=== PATIENT | male | born 1950 | race Caucasian/White ===

== ENCOUNTER 2025-05-05 12:56 | Outpatient (REF) | payer SELFPAY ==
--- OUTSIDE RECORDS SUMMARY | 2025-05-05 14:14 | XMS_ITS | Clinical Summary ---
Author Organization [facility] Address [address] [place] [address] Phone Care Team Providers Care Heel Caser Name Role Phone Ashli Eddy MD Primary Care Provider + [phone] Allergies No known active allergies Medications nebivoloL (BYSTOLIC) 5 mg tablet Take 1 tablet (5 mg total) by mouth 1 (one) time each day. 4 Active tadalafiL (CIALIS) 5 mg tablet Take 1 tablet (5 mg total) by mouth 1 (one) time each day. Active olmesartan (BENICAR) 40 mg tablet Take 1 tablet (40 mg total) by mouth 1 (one) time each day. Active nitroglycerin (NITROSTAT) 0.[address] 1 tablet (0.4 mg total) under the tongue every 5 (five) minutes if needed. Active hydroCHLOROthi azide (HYDRODIURIL) 25 mg tablet Take 1 tablet (25 mg total) by mouth 1 (one) time each day. 4 Active brinzolamide (AZOPT) 1 % ophthalmic suspension Administer 1 drop into both eyes 2 (two) times a day. 9 Active cyanocobalamin (VITAMIN B-12) 50 mcg tablet Take 1 tablet (50 mcg total) by mouth 1 (one) time each day. Active atorvastatin (LIPITOR) 10 mg tablet Take 1 tablet (10 mg total) by mouth 1 (one) time each day. 4 Active ciprofloxacin (CIPRO) 500 mg tablet Take 1 tablet (500 mg total) by mouth 2 (two) times a day. Starting day before sx Active warfarin (COUMADIN) 5 mg tablet Take 1 tablet (5 mg total) by mouth 1 (one) time each day with dinner. Last day 04/19/25 04/25/20 Discontinu ed(Stop Taking at Discharge) Encounters Date Type Department Care Team Description 04/25/2025 3:21 PM EDT Anesthesia Event [facility] Main OR [address] [place] [phone] Kirby Chavarria MD 04/25/2025 2:20 PM EDT - 04/25/2025 4:20 PM EDT Surgery [facility] Main OR [address] [place] [phone] Francesca Dillard MD TRANSRECTAL ULTRASOUND GUIDED NEEDLE PROSTATED BIOPSY [00407 (CPT )] 04/25/2025 12:15 PM EDT - 04/25/2025 11:59 PM EDT Hospital Encounter [facility] Ultrasound [address] [place] [phone] Elevated PSA Discharge Disposition: Home or Self Care 04/25/2025 12:09 PM EDT - 04/25/2025 7:18 PM EDT Hospital Encounter [facility] Main OR [address] [place] [phone] Francesca Dillard MD Elevated prostate specific antigen (PSA); Asymptomatic microscopic hematuria; Other abnormal findings on cytological and histological examination of urine Discharge Disposition: Home or Self Care 04/25/2025 7:45 AM EDT - 04/25/2025 11:59 PM EDT Hospital Encounter [facility] Xray [address] [place] [phone] Pain Discharge Disposition: Home or Self Care from Last 3 Months Surgical History Surgery Date Site/Laterality Comments OTHER SURGICAL HISTORY CORONARY ARTERY BYPASS GRAFT over 30 yrs ago CHOLECYSTECTOMY HERNIA REPAIR Medical History Medical History Date Comments Hypertension Hyperlipidemia HL (hearing loss) b mcgarry Chronic kidney disease Bladder disorder abnormal cels f inding in bladder and prostate Irregular heart beat Arrhythmia Pacemaker Social History Tobacco Use Types Packs/Day Years Used Date Smoking Tobacco: Never Smokeless Tobacco: Never Tobacco Cessation:Counseling Given: Not Answered Alcohol Use Standard Drinks/Week Comments Yes 6 (1 standard drink = 0.6 oz pur e alcohol) Interpersonal Safety Answer Date Record ed Physical Abuse 04/25/2025 Verbal Abuse 04/25/2025 Sex and Gender Information Value Date Recorded Sex Assigned at Not on file Legal Sex Male 4:20 AM EST Gender Identity Not on file Sexual Orientation Not on file Obstetrics History Last Filed Vital Signs Vital Sign Reading Time Taken Comments Blood Pressure 143/73 04/25/2025 5:48 PM EDT Pulse 77 04/25/2025 5:48 PM EDT Temperature 36.8 C (98.3 F) 04/25/2025 5:48 PM EDT Respiratory Rate 20 04/25/2025 5:48 PM EDT Oxygen Saturation 99% 04/25/2025 5:48 PM EDT Inhaled Oxygen Concentration - - Weight 99.8 kg (220 lb) 04/19/2025 10:00 AM EDT Height 185.4 cm (6' 1 ) 04/19/2025 10:00 AM EDT Body Mass Index 29.03 04/19/2025 10:00 AM EDT Plan of Treatment Health Maintenance Due Date Last Done Comments Depression Screening 09/01/2024 Cholesterol Screening (Lipid Panel) 03/25/2025 Colorectal Cancer Screening: Colonoscopy 03/25/2025 Hepatitis C Screening 03/25/2025 Medicare Annual Wellness Visit 03/25/2025 Social Influencers of Health Screening 03/25/2025 Hypertension/CHF/CAD Annual BMP Blood Test 03/29/2025 01/20/2024 COVID-19 Vaccine ( season) 2025 06/18/2023, 12/27/2021, 06/28/2021, Additional history exists Influenza Vaccine (#1) 2025 , 06/14/2022, 05/24/2021, Additional history exists Falls Risk Assessment 04/25/2026 04/25/2025 DTaP,Tdap,and Td Vaccines (3 - Td or Tdap) 07/16/2029 07/16/2019, 05/02/2008 Pneumococcal Vaccine: 50+ Years Completed 08/08/2016, 01/25/2015 Zoster Vaccines Completed 06/29/2019, 10/0 12/2017, 12/26/2010 RSV Immunization Adult Patients Completed 07/08/2023 HIB Vaccines Aged Out No longer eligi ble based on patient's age to complete this topic HPV Vaccines Aged Out No longer eligi ble based on patient's age to complete this topic Hepatitis A Vaccines Aged Out No long er eligible based on patient's age to complete this topic Hepatitis B Vaccines Aged Out No long er eligible based on patient's age to complete this topic IPV Vaccines Aged Out No longer eligi ble based on patient's age to complete this topic MMR Vaccines Aged Out No longer eligi ble based on patient's age to complete this topic Meningococcal ACWY Vaccine Aged Out N o longer eligible based on patient's age to complete this topic Meningococcal B Vaccine Aged Out No l onger eligible based on patient's age to complete this topic RSV Immunization Patients Under 20 months Aged Out No longer eligible based on patient's age to complete this topic Varicella Vaccines Aged Out No longer eligible based on patient's age to complete this topic Procedures Procedure Name Priority Date/Time Associated Diagnosis Comments OXYGEN THERAPY, ADULT Routine 04/25/2025 4:42 PM EDT OXYGEN THERAPY, ADULT Routine 04/25/2025 4:42 PM EDT US BX PROSTATE NDL/PUNCH Routine 04/25/2025 4:20 PM EDT Elevated PSA TISSUE EXAM Routine 04/25/2025 4:19 PM EDT Elevated prostate specific antigen (PSA) Asymptomatic microscopic hematuria Other abnormal findings on cytological and histological examination of urine XR UROGRAM RETROGRADE Routine 04/25/2025 4:15 PM EDT Pain TH AN LMA(NO CHARGE) Routine 04/25/2025 3:35 PM EDT MN CYSTOURETHROSCOPY WITH BIOPSY(S) 04/25/2025 3:22 PM EDT Elevated prostate specific antigen (PSA) Asymptomatic microscopic hematuria Other abnormal findings on cytological and histological examination of urine 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, 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 [employer] F[employer] Special Needs TIME CHGD TO 12:00 (MOVED CASE DOWN)PER CRISTA VIA FAX BKG; case msg sent to u/s w/new start time AC 03/28 Sent case msg for u/s tech request MN BIOPSY PROSTATE NEEDLE/PUNCH SINGLE/MULTIPLE ANY APPROACH 04/25/2025 3:22 PM EDT Elevated prostate specific antigen (PSA) Asymptomatic microscopic hematuria Other abnormal findings on cytological and histological examination of urine 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, 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 -------- FINAL REPORT -------- Dictated By: Wild Winkler Dictated Date: 04/26/2025 09:02 ET Assigned Physician: Wild Winkler Reviewed and Electronically Signed By: Wild Winkler Signed Date: 04/26/2025 09:03 ET Workstation ID: [id number] Transcribed By: Self Edit Transcribed Date: 04/26/2025 09:02 ET Narrative 04/26/2025 9:03 AM EDT EXAM: US PROSTATE HISTORY: Elevated PSA. TECHNIQUE: Transrectal prostate ultrasound. COMPARISON: None FINDINGS: Quality: No significant limitations Prostate size: 6.9 x 5.1 x 6.2 cm Estimated prostate volume: 115 mL ECHOTEXTURE: There are calcifications in the peripheral gland. FOCAL ABNORMALITIES: No suspicious focal abnormalities. Extraprostatic extension: No evidence of extraprostatic extension Gland contour: The gland indents the bladder. Region of neurovascular bundle: No large abnormality. Seminal vesicles: No suspicious abnormality. Lymph nodes: No suspicious or enlarged lymph nodes. Urinary bladder: Not well evaluated. OTHER: Ultrasound guidance was provided during transrectal prostate ultrasound performed by the urologist. No radiologist was present. Images demonstrate linear bright reflectors consistent with needle passage. Procedure Note Wild Winkler MD - 04/26/2025 EXAM: US PROSTATE HISTORY: Elevated PSA. TECHNIQUE: Transrectal prostate ultrasound. COMPARISON: None FINDINGS: Quality: No significant limitations Prostate size: 6.9 x 5.1 x 6.2 cm Estimated prostate volume: 115 mL ECHOTEXTURE: There are calcifications in the peripheral gland. FOCAL ABNORMALITIES: No suspicious focal abnormalities. Extraprostatic extension: No evidence of extraprostatic extension Gland contour: The gland indents the bladder. Region of neurovascular bundle: No large abnormality. Seminal vesicles: No suspicious abnormality. Lymph nodes: No suspicious or enlarged lymph nodes. Urinary bladder: Not well evaluated. OTHER: Ultrasound guidance was provided during transrectal prostateultrasound performed by the urologist. No radiologist was present. Images demonstrate linear bright reflectors consistent with needlepassage. IMPRESSION: Enlarged prostate with coarse calcifications Imaging assistance was provided during transrectal prostate ultrasoundperformed by the urologist. -------- FINAL REPORT -------- Dictated By: Wild Winkler Dictated Date: 04/26/2025 09:02 ET Assigned Physician: Wild Winkler Reviewed and Electronically Signed By: Wild Winkler Signed Date: 04/26/2025 09:03 ET Workstation ID: [id number] Transcribed By: Self Edit Transcribed Date: 04/26/2025 09:02 ET us Francesca Dillard MD [facility] US PROCEDURES Final Result * Tissue exam (04/25/2025 4:19 PM EDT) Only the most recent of2 resultswithin the time period is included. Final Diagnosis A. Urinary Bladder, floor: - Benign urothelial mucosa with lamina propria fibrosis. - Negative for dysplasia and carcinoma. B. Prostate, Right Base Lateral: - Benign prostatic tissue. C. Prostate, Right Base Medial: - Benign prostatic tissue. D. Prostate, Right Mid Lateral: - Benign prostatic tissue. E. Prostate, Right Mid Medial: - Benign prostatic tissue. F. Prostate, Right [place] Lateral: - Benign prostatic tissue. G. Prostate, Right [place] Medial: - Benign prostatic tissue. H. Prostate, Left Base Lateral: - Benign prostatic tissue. I. Prostate, Left Base Medial: - Benign prostatic tissue. J. Prostate, Left Mid Lateral: - Benign prostatic tissue. K. Prostate, Left Mid Medial: - Benign prostatic tissue. L. Prostate, Left [place] Lateral: - Benign prostatic tissue. M. Prostate, Left [place] Medial: - Benign prostatic tissue. 04/27/2025 1:02 PM EDT [facility] Gross Description A. Urinary Bladder, floor: Labeled bladder . Received in formalin, on Telfa, is a soft, white to red, 0.35 cm in greatest diameter tissue fragment which is wrapped in paper and submitted in toto in one cassette, one piece, multiple levels. B. Prostate, Right Base Lateral: Labeled prostate biopsy, right base lateral . Received in formalin, between sheets of Telfa, is a 1.2 x 0.1 cm soft, cade-white tissue core, which is submitted in toto, between sponges, in one cassette, one piece, x4. C. Prostate, Right Base Medial: Labeled prostate biopsy, right base medial . Received in formalin, between sheets of Telfa, is a 1.3 x 0.1 cm soft, acde-white tissue core, which is submitted in toto, between sponges, in one cassette, one piece, x4. D. Prostate, Right Mid Lateral: Labeled prostate biopsy, right mid lateral . Received in formalin, between sheets of Telfa, is a focally disrupted, 1.4 x 0.1 cm soft, cade-white tissue core, which is submitted in toto, between sponges, in one cassette, one piece, x4. E. Prostate, Right Mid Medial: Labeled prostate biopsy, right mid medial . Received in formalin, between sheets of Telfa, is a 1.1 x 0.1 cm soft, cade-white tissue core, which is submitted in toto, between sponges, in one cassette, one piece, x4. F. Prostate, Right [place] Lateral: Labeled prostate biopsy, right apex lateral . Received in formalin, between sheets of Telfa, is a 1.4 x 0.1 cm soft, cade-white tissue core, which is submitted in toto, between sponges, in one cassette, one piece, x4. G. Prostate, Right [place] Medial: Labeled prostate biopsy, right apex medial . Received in formalin, between sheets of Telfa, is a 1.0 x 0.1 cm soft, cade-white tissue core, which is submitted in toto, between sponges, in one cassette, one piece, x4. H. Prostate, Left Base Lateral: Labeled prostate biopsy, left base lateral . Received in formalin, between sheets of Telfa, is a 1.4 x 0.1 cm soft, cade-white tissue core, which is submitted in toto, between sponges, in one cassette, one piece, x4. I. Prostate, Left Base Medial: Labeled prostate biopsy, left base medial . Received in formalin, between sheets of Telfa, is a 1.3 x 0.1 cm soft, cade-white tissue core, which is submitted in toto, between sponges, in one cassette, one piece, x4. J. Prostate, Left Mid Lateral: Labeled prostate biopsy, left mid lateral . Received in formalin, between sheets of Telfa, is a 1.1 x 0.1 cm soft, cade-white tissue core, which is submitted in toto, between sponges, in one cassette, one piece, x4. K. Prostate, Left Mid Medial: Labeled prostate biopsy, left mid medial . Received in formalin, between sheets of Telfa, is a 1.45 x 0.1 cm soft, cade-white tissue core, which is submitted in toto, between sponges, in one cassette, one piece, x4. Left mid medial L. Prostate, Left [place] Lateral: Labeled prostate biopsy, left apex lateral . Received in formalin, between sheets of Telfa, is a 1.4 x 0.1 cm soft, cade-white tissue core, which is submitted in toto, between sponges, in one cassette, one piece, x4. M. Prostate, Left [place] Medial: Labeled prostate biopsy, left apex medial . Received in formalin, between sheets of Telfa, is a 0.6 x 0.1 cm soft, cade-white tissue core, which is submitted in toto, between sponges, in one cassette, one piece, x4. TS 04/27/2025 1:02 PM [facility] Disclaimer Unless otherwise specified, all tissue is 10% NB formalin fixed and paraffin embedded. 04/27/2025 1:02 PM EDT [facility] Tissue Urinary bladder structure / Unknown 04/25/2025 4:19 PM EDT 04/26/2025 5:03 AM EDT Tissue specimen (specimen) Prostate / Unknown 04/25/2025 2:21 PM EDT 04/26/2025 5:18 AM EDT Tissue specimen (specimen) Prostate / Unknown 04/25/2025 2:21 PM EDT 04/26/2025 5:18 AM EDT Tissue specimen (specimen) Prostate / Unknown 04/25/2025 2:21 PM EDT 04/26/2025 5:18 AM EDT Tissue specimen (specimen) Prostate / Unknown 04/25/2025 2:21 PM EDT 04/26/2025 5:18 AM EDT Tissue specimen (specimen) Prostate / Unknown 04/25/2025 2:21 PM EDT 04/26/2025 5:18 AM EDT Tissue specimen (specimen) Prostate / Unknown 04/25/2025 2:21 PM EDT 04/26/2025 5:18 AM EDT Tissue specimen (specimen) Prostate / Unknown 04/25/2025 2:21 PM EDT 04/26/2025 5:18 AM EDT Tissue specimen (specimen) Prostate / Unknown 04/25/2025 2:21 PM EDT 04/26/2025 5:18 AM EDT Tissue specimen (specimen) Prostate / Unknown 04/25/2025 2:21 PM EDT 04/26/2025 5:18 AM EDT Tissue specimen (specimen) Prostate / Unknown 04/25/2025 2:21 PM EDT 04/26/2025 5:18 AM EDT Tissue specimen (specimen) Prostate / Unknown 04/25/2025 2:21 PM EDT 04/26/2025 5:18 AM EDT Tissue specimen (specimen) Prostate / Unknown 04/25/2025 2:21 PM EDT 04/26/2025 5:18 AM EDT us Francesca Dillard MD LAB PATHOLOGY ORDERABLES Final Result [facility] [address] [place] [address], * XR Urogram Retrograde (04/25/2025 4:15 PM EDT) Anatomical Region Laterality Modality Body Radio Fluoroscop y 04/26/2025 7:18 AM EDT Impressions 04/26/2025 7:20 AM EDT Imaging assistance provided during a urologic procedure -------- FINAL REPORT -------- Dictated By: Wild Winkler Dictated Date: 04/26/2025 07:18 ET Assigned Physician: Wild Winkler Reviewed and Electronically Signed By: Wild Winkler Signed Date: 04/26/2025 07:20 ET Workstation ID: [id number] Transcribed By: Self Edit Transcribed Date: 04/26/2025 07:18 ET Narrative 04/26/2025 7:20 AM EDT EXAMINATION: Imaging assistance provided during a procedure CLINICAL INFORMATION: Pain COMPARISON: None. TECHNIQUE: UROLOGIC-Imaging assistance was provided during a urologic procedure FINDINGS: The images are not labeled left or right. Cystoscope present. The distal ureter is engaged and contrast opacifies the ureter and some of the intrarenal collecting system. There is an oval filling defect in the ureter. Whether this is a transient or persistent finding is difficult to determine. The contralateral collecting system is opacified. Total dose area product : 9.1408 Gycm2 Fluoroscopy time: 2 minutes 0.2 seconds Procedure Note Wild Winkler MD - 04/26/2025 EXAMINATION: Imaging assistance provided during a procedure CLINICAL INFORMATION: Pain COMPARISON: None. TECHNIQUE: UROLOGIC-Imaging assistance was provided during a urologic procedure FINDINGS: The images are not labeled left or right. Cystoscope present. The distal ureter is engaged and contrast opacifiesthe ureter and some of the intrarenal collecting system. There is an ovalfilling defect in the ureter. Whether this is a transient or persistentfinding is difficult to determine. The contralateral collecting system is opacified. Total dose area product : 9.1408 Gycm2 Fluoroscopy time: 2 minutes 0.2 seconds IMPRESSION: Imaging assistance provided during a urologic procedure -------- FINAL REPORT -------- Dictated By: Wild Winkler Dictated Date: 04/26/2025 07:18 ET Assigned Physician: Wild Winkler Reviewed and Electronically Signed By: Wild Winkler Signed Date: 04/26/2025 07:20 ET Workstation ID: [id number] Transcribed By: Self Edit Transcribed Date: 04/26/2025 07:18 ET us Francesca Dillard MD IMG FLUOROSCOPY PROCEDUR ES Final Result * TH AN LMA(NO CHARGE) (04/25/2025 3:35 PM EDT) Narrative Lauryn Olvera CRNA - 04/25/2025 3:35 PM EDT Lauryn Olvera CRNA 04/25/2025 3:35 PM General Information and Staff Patient location during procedure: OR Performed by: Lauryn Olvera CRNA Authorized by: Kirby Chavarria MD Intubation Airway not difficult Urgency: elective Final Airway Details Number of attempts at approach: 1 Ventilation between attempts: none Number of other approaches attempted: 0 LMA Size: 5 LMA Type: Classic LMA Seal Pressure: Final airway type: LMA Indications and Patient Condition Indications for airway management: anesthesia and airway protection Spontaneous ventilation: present Sedation level: Yes Preoxygenated: yes Soft Tissue Damage: No Dentition Unchanged: Yes Patient position: neutral MILS not maintained throughout Mask difficulty assessment: 0 - not attempted Start Time: 04/25/2025 3:27 PMStop Time: 04/25/2025 3:27 PM us Kirby Chavarria MD ANESTHESIA ORDERABLES Final Re sult * Protime-INR (04/25/2025 12:35 PM EDT) Protime 12.8 10.6 - 13.9 sec LAB COAGULATION METHOD 04/25/2025 12:53 PM EDT [facility] INR 1.0 LAB COAGULATION METHOD 04/25/2025 12:53 PM EDT [facility] Blood Venous blood specimen / Unknown Venipuncture / Unknown 04/25/2025 12:35 PM EDT 04/25/2025 12:44 PM EDT us Francesca Dillard MD LAB BLOOD ORDERABLES Fin al Result [facility] [address] [place] [address], [place] [phone] from Last 3 Months Insurance MEDICARE [facility] Care Teams Heel Caser Relationship Specialty Start Date End Date Ashli Eddy MD [address] [place] [address] PCP - General Internal Medicine 04/25/25
--- OUTSIDE RECORDS SUMMARY | 2025-05-05 14:14 | XMS_ITS | Clinical Summary ---
Author Organization [facility] Address [address] [place] [address] Care Team Providers Care Transfer Man Name Role Phone Galileo Willis MD Primary Care Provider [phone] Allergies No known active allergies Medications Medication Sig Dispensed Refills Start Date End Date Status tadalafil (CIALIS) 5 MG tablet Take 5 mg by mouth daily. 0 Active atorvastatin (LIPITOR) tablet 10 mg Take 10 mg by mouth every evening. 0 Active olmesartan (BENICAR) tablet 40 mg Take 40 mg by mouth daily. 0 Active dorzolamide-timolol (COSOPT) 22.3-6.8 MG/ML ophthalmic solution 1 drop 2 (two) times a day. 0 Active nitroglycerin (NITROSTAT) 0.[address] 0.4 mg under the tongue every 5 (five) minutes as needed for chest pain. 0 Active WARFARIN SODIUM PO Take by mouth. 0 Ac tive Active Problems Problem Noted Date Diagnosed Date Enlarged prostate with lower urinary tract sympt oms (LUTS) 12/15/2017 Other male erectile dysfunction 12/15/2017 Urinary frequency 12/15/2017 Personal history UTI 12/15/2017 Elevated PSA 12/15/2017 Prostate nodule 12/15/2017 Incontinence without sensory awareness 8 Family History Medical History Relation Name Comments Ovarian cancer Mother Relation Name Status Comments Mother Social History Tobacco Use Types Packs/Day Years Used Date Smoking Tobacco: Never Alcohol Use Standard Drinks/Week Comments Yes 0 (1 standard drink = 0.6 oz pur e alcohol) Sex and Gender Information Value Date Recorded Sex Assigned at Not on file Gender Identity Not on file Sexual Orientation Not on file Last Filed Vital Signs Vital Sign Reading Time Taken Comments Blood Pressure 144/70 12/17/2017 9:29 AM EDT Pulse - - Temperature - - Respiratory Rate - - Oxygen Saturation - - Inhaled Oxygen Concentration - - Weight 102.5 kg (226 lb) 12/17/2017 9:29 AM EDT Height 185.4 cm (6' 1 ) 12/17/2017 9:29 AM EDT Body Mass Index 29.82 12/17/2017 9:29 AM EDT Plan of Treatment Health Maintenance Due Date Last Done Comments Hepatitis C Screening 1950 COVID-19 Vaccine (#1) 03/29/1951 Depression Screening 1961 Preventative Health Evaluation 1967 DTap / Tdap / Td (1 - Tdap) 1968 Colon Cancer Screening (Colonoscopy) 1994 Shingrix-Zoster Vaccine (1 of 2) 1999 Fall Risk Assessment 2014 Pneumococcal Vaccine (1 of 1 - PCV) 2014 RSV Adult > 60+ Yrs or Pregn ant (1 - 1-dose 75+ series) 2024 Influenza Vaccine (#1) 2025 Hepatitis B Vaccines Aged Out No long er eligible based on patient's age to complete this topic RSV Ped < 20 months Aged Out No longe r eligible based on patient's age to complete this topic Care Teams Transfer Man Relationship Specialty Start Date End Date Galileo Willis MD [address] [place] [address] PCP - General Family Medicine 12/15/17
--- OUTSIDE RECORDS SUMMARY | 2025-05-05 14:14 | XMS_ITS | Clinical Summary ---
Author Organization [facility] Address [address] [facility] [address] [place] [address] Phone Care Team Providers Care Commercial Sales Manager Name Role Phone Ashli Eddy MD Primary Care Provider Allergies No known active allergies Medications atorvastatin (LIPITOR) 10 MG tablet Take 10 mg by mouth 1 (one) time each day Active brinzolamide (AZOPT) 1 % ophthalmic suspension Administer 1 drop into both eyes in the morning and 1 drop in the evening and 1 drop before bedtime. Active Tadalafil (CIALIS PO) Take 1 tablet by mouth Active nebivolol (BYSTOLIC) 5 MG tablet Take 5 mg by mouth 1 (one) time each day Active cyanocobalamin (VITAMIN B-12) 50 MCG tablet Take 50 mcg by mouth 1 (one) time each day Active warfarin (COUMADIN) 5 MG tablet Take 5 mg by mouth 1 (one) time each day Take as directed per After Visit Summary. 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 Atrial fibrillation 02/18/2024 Coronary arteriosclerosis 02/18/2024 Hearing loss 02/18/2024 Hypertension 02/18/2024 Hyperlipidemia 02/18/2024 History of hernia repair 02/18/2024 Benign prostatic hyperplasia 12/15/2017 Increased frequency of urination 12/15/2017 Immunizations Immunization Administration Dates Next Due DTaP 05/02/2008 Influenza Whole 06/03/2019,06/27/2018 Moderna SARS-COV-2 12/27/2021,06/28/2021, 021,11/01/2020 Pneumococcal Conjugate 13-Valent 01/25/2015 Pneumococcal Polysaccharide 08/08/2016 Shingrix 06/29/2019,06/05/2018,12/26/2010 Tdap 07/16/2019 Family History Medical History Relation Comments Cancer Brother Diabetes Brother Hypertension Brother Hypertension Father Cancer Mother Hypertension Mother Hypertension Sister Relation Status Comments Brother Father Mother Sister Social History Tobacco Use Types Packs/Day Years Used Date Smoking Tobacco: Never Smokeless Tobacco: Never Tobacco Cessation:Counseling Given: Not Answered Alcohol Use Standard Drinks/Week Comments Yes 0 (1 standard drink = 0.6 oz pur e alcohol) Sex and Gender Information Value Date Recorded Sex Assigned at Not on file Legal Sex Male 11:16 AM EDT Gender Identity Not on file Sexual Orientation Not on file Last Filed Vital Signs Vital Sign Reading Time Taken Comments Blood Pressure 140/70 01/19/2025 3:34 PM EDT Pulse 71 01/19/2025 3:34 PM EDT Temperature - - Respiratory Rate - - Oxygen Saturation - - Inhaled Oxygen Concentration - - Weight 99.8 kg (220 lb) 02/18/2024 3:39 PM EDT Height - - Body Mass Index - - Plan of Treatment Upcoming Encounters Date Type Department Care Team (Late st Contact Info) Description 01/11/2026 1:00 PM EDT Office Visit [facility] [address] [place] [address] Pro Andrew MD [address] [address] Health Maintenance Due Date Last Done Comments Colorectal Cancer Screening: Annual FOBT 1998 Colorectal Cancer Screening: Colonoscopy 1998 Colorectal Cancer Screening: Sigmoidoscopy 1998 Influenza Vaccine (#1) 2025 9, 06/27/2018 Pneumococcal Vaccine: 50+ Years Completed 08/08/2016, 01/25/2015 Hepatitis B Vaccine Aged Out No longe r eligible based on patient's age to complete this topic Insurance Medicare [facility] Medicare Unicare Care Teams Commercial Sales Manager Relationship Specialty Start Date End Date Ashli Eddy MD [address] [place] [id number] PCP - General Internal Medicine 01/10/23
--- NOTE | 2025-05-06 08:17 | MHC.AU.HA3 ---
Hearing Instrument Follow-Up- Binaural Date of Visit: 05/05/25 Right Ear: Make, Model, Color, Serial Number: Oticon Intent 1 chroma beige [id number] Desolderer Repair Warranty: 08/14/2027 Desolderer Loss and Damage Warranty: 08/14/2027 [facility] Service Plan: n/a Battery Size: Rechargeable Extract Wringer/Slim Tube: 2/85 [place]old/Dome/CShell/SlimTip:8mm power Type of Wax Guard: minifit prowax Dispensed By: Office of Dr. Mckeon Date of Fitting: unknown Left Ear: Make, Model, Color, Serial Number: Oticon Intent 1 chroma beige [id number] Desolderer Repair Warranty: 08/14/2027 Desolderer Loss and Damage Warranty: 08/14/2027 [facility] Service Plan: n/a Battery Size: Rechargeable Extract Wringer/Slim Tube: 2/85 Earmold/Dome/CShell/SlimTip: 8mm power Type of Wax Guard: minifit prowax Dispensed By: Office of Dr. Mckeon Date of Fitting: unknown Follow-Up Summary: Both aids dropped off c/o left seems . Cleaned all, replaced domes and wax guards. Listening check positive right, left not amplifying. Replaced left photoresist contact printer, listening check positive. Recommendations: Recommendations: Hearing instrument follow-up or maintenance as needed. Diagnosis Code(s): Primary Diagnosis: H90.3 Signature: Provider: Brent Spivey, [facility]
== END 2025-05-05 12:57 | disposition home or self-care (01) ==
LOC: HO.HAP 12:56
PROVIDERS: Visit Provider Internal Medicine
DX: Z13.89 Encounter for screening for other disorder (principal)

== ENCOUNTER 2025-05-09 12:24 | Outpatient (REF) | payer SELFPAY ==
--- OUTSIDE RECORDS SUMMARY | 2025-05-09 14:43 | XMS_ITS | Clinical Summary ---
Author Organization [facility] Address [address] [place] [address] Phone Care Team Providers Care Dog Food Shredder Operator Name Role Phone Ashli Eddy MD Primary Care Provider + [phone] Allergies No known active allergies Medications nebivoloL [...] Description 04/25/2025 3:21 PM EDT Anesthesia Event [facility] Main OR [address] [place] [phone] Kirby Chavarria MD 04/25/2025 2:20 PM EDT - 04/25/2025 4:20 PM EDT Surgery [facility] Main OR [address] [place] [phone] Francesca Dillard MD TRANSRECTAL ULTRASOUND GUIDED NEEDLE PROSTATED BIOPSY [61751 (CPT )] 04/25/2025 12:15 PM EDT - 04/25/2025 11:59 PM EDT Hospital Encounter [facility] Ultrasound [address] [place] [phone] Elevated PSA Discharge Disposition: Home or Self Care 04/25/2025 12:09 PM EDT - 04/25/2025 7:18 PM EDT Hospital Encounter [facility] Main OR [address] [place] [phone] Francesca Dillard MD Elevated prostate specific antigen (PSA); Asymptomatic microscopic hematuria; Other abnormal findings on cytological and histological examination of urine Discharge Disposition: Home or Self Care 04/25/2025 7:45 AM EDT - 04/25/2025 11:59 PM EDT Hospital Encounter [facility] Xray [address] [place] [phone] Pain Discharge Disposition: Home or Self Care [...] LMA(NO CHARGE) Routine 04/25/2025 3:35 PM EDT AZ CYSTOURETHROSCOPY WITH BIOPSY(S) 04/25/2025 3:22 PM EDT Elevated prostate specific antigen (PSA) Asymptomatic microscopic hematuria Other abnormal findings on cytological and histological examination of urine 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, SUPERVISOR CALIBRATION Special Needs TIME CHGD TO 12:00 (MOVED CASE DOWN)PER CRISTA VIA FAX BKG; case msg sent to u/s w/new start time AC 03/28 Sent case msg for u/s tech request AZ BIOPSY PROSTATE NEEDLE/PUNCH SINGLE/MULTIPLE ANY APPROACH 04/25/2025 3:22 PM EDT Elevated prostate specific antigen (PSA) Asymptomatic microscopic hematuria Other abnormal findings on cytological and histological examination of urine 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, SUPERVISOR CALIBRATION Special Needs TIME CHGD TO 12:00 (MOVED [...] Signed Date: 04/26/2025 09:03 ET Workstation ID: [id number] Transcribed By: Self Edit Transcribed Date: 04/26/2025 [...] Signed Date: 04/26/2025 09:03 ET Workstation ID: [id number] Transcribed By: Self Edit Transcribed Date: 04/26/2025 09:02 ET us Francesca Dillard MD [facility] [place] Final Result * Tissue exam [...] - Benign prostatic tissue. F. Prostate, Right [place] Lateral: - Benign prostatic tissue. G. Prostate, Right [place] Medial: - Benign prostatic tissue. H. Prostate, Left Base Lateral: - Benign prostatic tissue. I. Prostate, Left Base Medial: - Benign prostatic tissue. J. Prostate, Left Mid Lateral: - Benign prostatic tissue. K. Prostate, Left Mid Medial: - Benign prostatic tissue. L. Prostate, Left [place] Lateral: - Benign prostatic tissue. M. Prostate, Left [place] Medial: - Benign prostatic tissue. 04/27/2025 1:02 PM EDT [facility] ([facility]) [facility] Gross Description A. Urinary Bladder, floor: [...] cassette, one piece, x4. F. Prostate, Right [place] Lateral: Labeled prostate biopsy, right apex lateral . Received in formalin, between sheets of Telfa, is a 1.4 x 0.1 cm soft, cade-white tissue core, which is submitted in toto, between sponges, in one cassette, one piece, x4. G. Prostate, Right [place] Medial: Labeled prostate biopsy, right apex medial [...] x4. Left mid medial L. Prostate, Left [place] Lateral: Labeled prostate biopsy, left apex lateral . Received in formalin, between sheets of Telfa, is a 1.4 x 0.1 cm soft, cade-white tissue core, which is submitted in toto, between sponges, in one cassette, one piece, x4. M. Prostate, Left [place] Medial: Labeled prostate biopsy, left apex medial . Received in formalin, between sheets of Telfa, is a 0.6 x 0.1 cm soft, cade-white tissue core, which is submitted in toto, between sponges, in one cassette, one piece, x4. TS 04/27/2025 1:02 PM MOHAN [facility] ([facility]) [facility] Disclaimer Unless otherwise specified, all tissue is 10% NB formalin fixed and paraffin embedded. 04/27/2025 1:02 PM EDT [facility] Tissue Urinary bladder structure / [...] Dillard MD LAB PATHOLOGY ORDERABLES Final Result [facility]) [facility] [address] [place] [address], * XR Urogram Retrograde (04/25/2025 4:15 PM EDT) Anatomical Region Laterality Modality Body Radio Fluoroscop y 04/26/2025 7:18 AM EDT Impressions 04/26/2025 7:20 AM EDT Imaging assistance provided during a urologic procedure -------- FINAL REPORT -------- Dictated By: Wild Winkler Dictated Date: 04/26/2025 07:18 ET Assigned Physician: Wild Winkler Reviewed and Electronically Signed By: Wild Winkler Signed Date: 04/26/2025 07:20 ET Workstation ID: [id number] Transcribed By: Self Edit Transcribed Date: 04/26/2025 [...] Signed Date: 04/26/2025 07:20 ET Workstation ID: [id number] Transcribed By: Self Edit Transcribed Date: 04/26/2025 [...] LAB COAGULATION METHOD 04/25/2025 12:53 PM EDT [facility] INR 1.0 LAB COAGULATION METHOD 04/25/2025 12:53 PM EDT [facility] Blood Venous blood specimen / Unknown Venipuncture / Unknown 04/25/2025 12:35 PM EDT 04/25/2025 12:44 PM EDT us Francesca Dillard MD LAB BLOOD ORDERABLES Fin al Result [facility] [address] [place] [address], [place] [phone] from Last 3 Months Insurance MEDICARE [facility] Care Teams Dog Food Shredder Operator Relationship Specialty Start Date End Date Ashli Eddy MD [address] [place] [address] PCP - General Internal Medicine 04/25/25
--- OUTSIDE RECORDS SUMMARY | 2025-05-09 14:43 | XMS_ITS | Clinical Summary ---
Author Organization [facility] Address [address] [facility] [address] [place] [address] Phone Care Team Providers Care Experiential Therapist Name Role Phone Ashli Eddy MD Primary [...] Visit [facility] [address] [place] [address] Pro Andrew MD [address] [address] Health Maintenance Due Date Last Done Comments Colorectal Cancer Screening: Annual FOBT 1998 Colorectal Cancer Screening: Colonoscopy 1998 Colorectal Cancer Screening: Sigmoidoscopy 1998 Influenza Vaccine (#1) 2025 9, 06/27/2018 Pneumococcal Vaccine: 50+ Years Completed 08/08/2016, 01/25/2015 Hepatitis B Vaccine Aged Out No longe r eligible based on patient's age to complete this topic Insurance Medicare [facility] Medicare Unicare Care Teams Experiential Therapist Relationship Specialty Start Date End Date Ashli Eddy MD [address] [place] [phone] PCP - General Internal Medicine 01/10/23
--- OUTSIDE RECORDS SUMMARY | 2025-05-09 14:44 | XMS_ITS | Clinical Summary ---
Author Organization [facility] Address [address] [place] [address] Care Team Providers Care Chain Forming Machine Operator Name Role Phone Galileo Willis MD Primary Care Provider [phone] Allergies No known active allergies Medications Medication [...] age to complete this topic Care Teams Chain Forming Machine Operator Relationship Specialty Start Date End Date Galileo Willis MD [address] [place] [address] PCP - General Family Medicine 12/15/17
== END 2025-05-09 12:25 | disposition home or self-care (01) ==
LOC: HO.HAP 12:24
PROVIDERS: Visit Provider Internal Medicine
DX: Z46.1 Encounter for fitting and adjustment of hearing aid (principal); H90.3 Sensorineural hearing loss, bilateral
CPT/HCPCS: 92593

== ENCOUNTER 2025-06-22 11:43 | Outpatient (REF) | payer SELFPAY ==
--- OUTSIDE RECORDS SUMMARY | 2025-06-22 16:18 | XMS_ITS | Clinical Summary ---
Author Organization [facility] Address [address] [place] [address] Care Team Providers Care Miller Kiln Dried Salt Name Role Phone Galileo Willis MD Primary Care Provider [phone] Allergies No known active allergies Medications Medication [...] age to complete this topic Care Teams Miller Kiln Dried Salt Relationship Specialty Start Date End Date Galileo Willis MD [address] [place] [address] PCP - General Family Medicine 12/15/17
--- OUTSIDE RECORDS SUMMARY | 2025-06-22 16:18 | XMS_ITS | Clinical Summary ---
Author Organization [facility] Address [address] [place] [address] Phone Care Team Providers Care Wax Pattern Repairer Name Role Phone Ashli Eddy MD Primary Care Provider + [phone] Allergies No known active allergies Medications nebivoloL [...] every 5 (five) minutes if needed. Active hydroCHLOROthia zide (HYDRODIURIL) 25 mg tablet Take 1 tablet [...] a day. Starting day before sx Active Encounters Date Type Department Care Team Description 04/25/2025 3:21 PM EDT Anesthesia Event [facility] Main OR [address] [place] [address] Kirby Chavarria MD 04/25/2025 2:20 PM EDT - 04/25/2025 4:20 PM EDT Surgery [facility] Main OR [address] [place] [address] Francesca Dillard MD TRANSRECTAL ULTRASOUND GUIDED NEEDLE PROSTATED BIOPSY [33400 (CPT )] 04/25/2025 12:15 PM EDT - 04/25/2025 11:59 PM EDT Hospital Encounter [facility] Ultrasound [address] [place] [address] Elevated PSA Discharge Disposition: Home or Self Care 04/25/2025 12:09 PM EDT - 04/25/2025 7:18 PM EDT Hospital Encounter [facility] Main OR [address] [place] [address] Francesca Dillard MD Elevated prostate specific antigen (PSA); Asymptomatic microscopic hematuria; Other abnormal findings on cytological and histological examination of urine Discharge Disposition: Home or Self Care 04/25/2025 7:45 AM EDT - 04/25/2025 11:59 PM EDT Hospital Encounter [facility] Xray [address] [place] [address] Pain Discharge Disposition: Home or Self Care [...] Safety Answer Date Record ed Physical Abuse Unrecognized value 04/25/2025 Verbal Abuse Unrecognized value 04/25/2025 Sex and Gender Information Value Date [...] Date Last Done Comments Colorectal Cancer Screening: Colonoscopy 1949 Depression Screening 09/01/2024 Cholesterol Screening (Lipid Panel) 03/25/2025 Hepatitis C Screening 03/25/2025 Medicare Annual [...] RETROGRADE Routine 04/25/2025 4:15 PM EDT Pain NON-GYNECOLOGIC CYTOLOGY Routine 04/25/2025 3:54 PM EDT Elevated prostate specific antigen (PSA) Asymptomatic microscopic hematuria Other abnormal findings on cytological and histological examination of urine TH AN LMA(NO CHARGE) Routine 04/25/2025 3:35 PM EDT AL CYSTOURETHROSCOPY WITH BIOPSY(S) 04/25/2025 3:22 PM EDT Elevated prostate specific antigen (PSA) Asymptomatic microscopic hematuria Other abnormal findings on cytological and histological examination of urine 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, SCREEN PRINTING EQUIPMENT SETTER Special Needs TIME CHGD TO 12:00 (MOVED CASE DOWN)PER CRISTA VIA FAX BKG; case msg sent to u/s w/new start time AC 03/28 Sent case msg for u/s tech request AL BIOPSY PROSTATE NEEDLE/PUNCH SINGLE/MULTIPLE ANY APPROACH 04/25/2025 3:22 PM EDT Elevated prostate specific antigen (PSA) Asymptomatic microscopic hematuria Other abnormal findings on cytological and histological examination of urine 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, SCREEN PRINTING EQUIPMENT SETTER Special Needs TIME CHGD TO 12:00 (MOVED [...] Signed Date: 04/26/2025 09:03 ET Workstation ID: [id number] Transcribed By: Self Edit Transcribed Date: 04/26/2025 [...] Signed Date: 04/26/2025 09:03 ET Workstation ID: [id number] Transcribed By: Self Edit Transcribed Date: 04/26/2025 09:02 ET us Francesca Dillard MD [facility] PROCEDURES Final Result * Tissue exam [...] - Benign prostatic tissue. F. Prostate, Right [place] Lateral: - Benign prostatic tissue. G. Prostate, Right [place] Medial: - Benign prostatic tissue. H. Prostate, Left Base Lateral: - Benign prostatic tissue. I. Prostate, Left Base Medial: - Benign prostatic tissue. J. Prostate, Left Mid Lateral: - Benign prostatic tissue. K. Prostate, Left Mid Medial: - Benign prostatic tissue. L. Prostate, Left [place] Lateral: - Benign prostatic tissue. M. Prostate, Left [place] Medial: - Benign prostatic tissue. 04/27/2025 1:[address] [facility] Gross Description A. Urinary Bladder, [...] cassette, one piece, x4. F. Prostate, Right [place] Lateral: Labeled prostate biopsy, right apex lateral . Received in formalin, between sheets of Telfa, is a 1.4 x 0.1 cm soft, cade-white tissue core, which is submitted in toto, between sponges, in one cassette, one piece, x4. G. Prostate, Right [place] Medial: Labeled prostate biopsy, right apex medial [...] x4. Left mid medial L. Prostate, Left [place] Lateral: Labeled prostate biopsy, left apex lateral . Received in formalin, between sheets of Telfa, is a 1.4 x 0.1 cm soft, cade-white tissue core, which is submitted in toto, between sponges, in one cassette, one piece, x4. M. Prostate, Left [place] Medial: Labeled prostate biopsy, left apex medial . Received in formalin, between sheets of Telfa, is a 0.6 x 0.1 cm soft, cade-white tissue core, which is submitted in toto, between sponges, in one cassette, one piece, x4. TS 04/27/2025 1:[address] [facility] Disclaimer Unless otherwise specified, all tissue is 10% NB formalin fixed and paraffin embedded. 04/27/2025 1:02 PM EDT [facility] Tissue Urinary bladder structure [...] Dillard MD LAB PATHOLOGY ORDERABLES Final Result [facility] [address] [place] [address], [place] [phone] * XR Urogram Retrograde (04/25/2025 4:15 PM EDT) Anatomical Region Laterality Modality Body Radio Fluoroscop y 04/26/2025 7:18 AM EDT Impressions 04/26/2025 7:20 AM EDT Imaging assistance provided during a urologic procedure -------- FINAL REPORT -------- Dictated By: Wild Winkler Dictated Date: 04/26/2025 07:18 ET Assigned Physician: Wild Winkler Reviewed and Electronically Signed By: Wild Winkler Signed Date: 04/26/2025 07:20 ET Workstation ID: [id number] Transcribed By: Self Edit Transcribed Date: 04/26/2025 [...] Signed Date: 04/26/2025 07:20 ET Workstation ID: [id number] Transcribed By: Self Edit Transcribed Date: 04/26/2025 07:18 ET Francesca Dillard MD IMG FLUOROSCOPY PROCEDUR ES Final Result * Non-gynecologic cytology (04/25/2025 3:54 PM EDT) Addendum A. Urinary Bladder, bladder washings: Results of UroVysion fluorescence in situ hybridization (FISH) testing: CEP3: Normal CEP7: Normal CEP17: Normal LSI 9p21: Normal Interpretation: Normal profile Controls stained appropriately. Note: The results are intended as a screening device and should be interpreted in association with other clinical and pathological findings. B. Kidney, Right, right kidney and ureter washings: Results of UroVysion fluorescence in situ hybridization (FISH) testing: CEP3: Normal CEP7: Normal CEP17: Normal LSI 9p21: Normal Interpretation: Normal profile Controls stained appropriately. Note: The results are intended as a screening device and should be interpreted in association with other clinical and pathological findings. C. Kidney, Left, left kidney and ureter washings: Results of UroVysion fluorescence in situ hybridization (FISH) testing: CEP3: Normal CEP7: Normal CEP17: Normal LSI 9p21: Normal Interpretation: Normal profile Controls stained appropriately. Note: The results are intended as a screening device and should be interpreted in association with other clinical and pathological findings. 05/11/2025 2:39 PM EDT EXTERNAL LAB (NON-INTERFAC ED) Addendum electronically signed by Charlie Hutchins MD on 05/11/2025 at 2:39 PM Final Diagnosis A. Urinary Bladder, Washings,(ThinPr ep): Negative for high grade urothelial carcinoma. Note: UroVysion testing to follow. B. Kidney & Ureter, Right, combined washings, (ThinPrep): Negative for high grade urothelial carcinoma. Note: UroVysion testing to follow. C. Kidney & Ureter, Left, combined washings, (ThinPrep): Negative for high grade urothelial carcinoma. Note: UroVysion testing to follow. 05/11/2025 2:39 PM EDT EXTERNAL LAB (NON-INTERFAC ED) Specimen A Adequacy Satisfactory for evaluation 05/11/2025 2:39 PM EDT EXTERNAL LAB (NON-INTERFAC ED) Specimen B Adequacy Satisfactory for evaluation 05/11/2025 2:39 PM EDT EXTERNAL LAB (NON-INTERFAC ED) Specimen C Adequacy Satisfactory for evaluation 05/11/2025 2:39 PM EDT EXTERNAL LAB (NON-INTERFAC ED) Gross Description A. Urinary Bladder, bladder washings, cytology, FISH: 100 ml of dark orange cloudy urine 1 thin prep, 1 urovision slide B. Kidney, Right, right kidney and ureter washings, cytology, FISH: 10 ml of clear urine 1 thin prep, 1 urovision slide C. Kidney, Left, left kidney and ureter washings, cytology, FISH: 5 ml of clear urine 1 thin prep, 1 urovision slide 05/11/2025 2:39 PM EDT [facility] Disclaimer Unless otherwise specified, all tissue is 10% NB formalin fixed and paraffin embedded. Technical cytopathology services provided by [facility], at [address] [place] [address] (IA # [id number]/Dudley Hutchins MD, Cert Occupational Therapy Asst.) 05/11/2025 2:39 PM EDT [facility] Urine Urinary bladder structure / Unknown 04/25/2025 3:54 PM EDT 04/26/2025 9:24 AM EDT Urine specimen (specimen) Right kidney structure / Unknown 04/25/2025 4:00 PM EDT 04/26/2025 9:24 AM EDT Urine specimen (specimen) Left kidney structure / Unknown 04/25/2025 4:09 PM EDT 04/26/2025 9:24 AM EDT Francesca Dillard MD LAB CYTOLOGY ORDERABLES Edited Result - Final EXTERNAL LAB (NON-INTERFACED) [facility] [address] [place] [address], [place] [phone] * TH AN LMA(NO CHARGE) (04/25/2025 3:35 PM EDT) Lauryn Perry CRNA - 04/25/2025 3:35 PM EDT Lauryn [...] LAB COAGULATION METHOD 04/25/2025 12:53 PM EDT [facility] INR 1.0 LAB COAGULATION METHOD 04/25/2025 12:53 PM EDT [facility] Blood Venous blood specimen / Unknown Venipuncture / Unknown 04/25/2025 12:35 PM EDT 04/25/2025 12:44 PM EDT Francesca Dillard MD LAB BLOOD ORDERABLES Fin al Result Performing Organization Address City/[facility]/ZIP Co de Phone Number [facility] [address] [place] [address], [place] [phone] from Last 3 Months Insurance MEDICARE [facility] Care Teams Wax Pattern Repairer Relationship Specialty Start Date End Date Ashli Eddy MD [address] [place] [phone] PCP - General Internal Medicine 04/25/25
== END 2025-06-22 11:44 | disposition home or self-care (01) ==
LOC: HO.HAP 11:43
PROVIDERS: Visit Provider Internal Medicine
DX: Z13.89 Encounter for screening for other disorder (principal)

== ENCOUNTER 2025-07-06 11:51 | Outpatient (REF) | payer SELFPAY ==
--- OUTSIDE RECORDS SUMMARY | 2025-07-06 14:32 | XMS_ITS | Clinical Summary ---
Author Organization [facility] Address [address] [facility] [address] [place] [address] Phone Care Team Providers Care Soda Tester Name Role Phone Ashli Eddy MD Primary [...] Care Team (Late st Contact Info) Description 07/22/2025 Orders Only [facility] [address] [place] [phone] Pro Andrew MD [address] [phone] Stage 3 chronic kidney disease, not otherwise specified (HCC) 01/11/2026 1:00 PM EDT Office Visit [facility] [address] [place] [phone] Pro Andrew MD [address] [phone] Health Maintenance Due Date Last Done Comments Colorectal Cancer Screening: Annual FOBT 1998 Colorectal Cancer Screening: Colonoscopy 1998 Colorectal Cancer Screening: Sigmoidoscopy 1998 Influenza Vaccine (#1) 2025 9, 06/27/2018 Pneumococcal Vaccine: 50+ Years Completed 08/08/2016, 01/25/2015 Hepatitis B Vaccine Aged Out No longe r eligible based on patient's age to complete this topic Insurance Medicare [facility] Medicare Unicare Care Teams Soda Tester Relationship Specialty Start Date End Date Ashli Eddy MD [address] [place] [phone] PCP - General Internal Medicine 01/10/23
--- OUTSIDE RECORDS SUMMARY | 2025-07-06 14:32 | XMS_ITS | Clinical Summary ---
Author Organization [facility] Address [address] [place] [address] Care Team Providers Care Mapping Pilot Name Role Phone Galileo Willis MD Primary Care Provider [phone] Allergies No known active allergies Medications Medication [...] age to complete this topic Care Teams Mapping Pilot Relationship Specialty Start Date End Date Galileo Willis MD [address] [place] [address] PCP - General Family Medicine 12/15/17
--- OUTSIDE RECORDS SUMMARY | 2025-07-06 14:32 | XMS_ITS | Clinical Summary ---
Author Organization [facility] Address [address] [place] [address] Phone Care Team Providers Care Regional Coordinator Name Role Phone Ashli Eddy MD Primary Care Provider + [phone] Allergies No known active allergies Medications nebivoloL [...] Description 04/25/2025 3:21 PM EDT Anesthesia Event [facility] Main OR [address] [place] [address] Kirby Chavarria MD 04/25/2025 2:20 PM EDT - 04/25/2025 4:20 PM EDT Surgery [facility] Main OR [address] [place] [address] Francesca Dillard MD TRANSRECTAL ULTRASOUND GUIDED NEEDLE PROSTATED BIOPSY [59991 (CPT )] 04/25/2025 12:15 PM EDT - 04/25/2025 11:59 PM EDT Hospital Encounter [facility] Ultrasound [address] [place] [address] Elevated PSA Discharge Disposition: Home or Self Care 04/25/2025 12:09 PM EDT - 04/25/2025 7:18 PM EDT Hospital Encounter [facility] Main OR [address] [place] [address] Francesca Dillard MD Elevated prostate specific antigen (PSA); Asymptomatic microscopic hematuria; Other abnormal findings on cytological and histological examination of urine Discharge Disposition: Home or Self Care 04/25/2025 7:45 AM EDT - 04/25/2025 11:59 PM EDT Hospital Encounter [facility] Xray [address] [place] [address] Pain Discharge Disposition: Home or Self Care [...] LMA(NO CHARGE) Routine 04/25/2025 3:35 PM EDT [place] CYSTOURETHROSCOPY WITH BIOPSY(S) 04/25/2025 3:22 PM EDT Elevated prostate specific antigen (PSA) Asymptomatic microscopic hematuria Other abnormal findings on cytological and histological examination of urine 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, 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 Needs TIME CHGD TO 12:00 (MOVED CASE DOWN)PER CRISTA VIA FAX BKG; case msg sent to u/s w/new start time AC 03/28 Sent case msg for u/s tech request [place] BIOPSY PROSTATE NEEDLE/PUNCH SINGLE/MULTIPLE ANY APPROACH 04/25/2025 3:22 PM EDT Elevated prostate specific antigen (PSA) Asymptomatic microscopic hematuria Other abnormal findings on cytological and histological examination of urine 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 F. Prostate, Right [place] Lateral: - Benign prostatic tissue. G. Prostate, Right [place] Medial: - Benign prostatic tissue. H. Prostate, Left Base Lateral: - Benign prostatic tissue. I. Prostate, Left Base Medial: - Benign prostatic tissue. J. Prostate, Left Mid Lateral: - Benign prostatic tissue. K. Prostate, Left Mid Medial: - Benign prostatic tissue. L. Prostate, Left [place] Lateral: - Benign prostatic tissue. M. Prostate, Left [place] Medial: - Benign prostatic tissue. 04/27/2025 1:02 PM EDT [facility] Gross Description [...] cassette, one piece, x4. F. Prostate, Right [place] Lateral: Labeled prostate biopsy, right apex lateral . Received in formalin, between sheets of Telfa, is a 1.4 x 0.1 cm soft, cade-white tissue core, which is submitted in toto, between sponges, in one cassette, one piece, x4. G. Prostate, Right [place] Medial: Labeled prostate biopsy, right apex medial [...] x4. Left mid medial L. Prostate, Left [place] Lateral: Labeled prostate biopsy, left apex lateral . Received in formalin, between sheets of Telfa, is a 1.4 x 0.1 cm soft, cade-white tissue core, which is submitted in toto, between sponges, in one cassette, one piece, x4. M. Prostate, Left [place] Medial: Labeled prostate biopsy, left apex medial . Received in formalin, between sheets of Telfa, is a 0.6 x 0.1 cm soft, cade-white tissue core, which is submitted in toto, between sponges, in one cassette, one piece, x4. TS 04/27/2025 1:02 PM EDT [facility] Disclaimer Unless [...] Dillard MD LAB PATHOLOGY ORDERABLES Final Result [facility] [address] [place] [address], [place] [phone] * XR Urogram Retrograde (04/25/2025 4:15 PM EDT) Anatomical Region Laterality Modality Body Radio Fluoroscop y 04/26/2025 7:18 AM EDT Impressions 04/26/2025 7:20 AM EDT Imaging assistance provided during a urologic procedure -------- FINAL REPORT -------- Dictated By: Wild Winkler Dictated Date: 04/26/2025 07:18 ET Assigned Physician: Wild Winkler Reviewed and Electronically Signed By: Wild Winkler Signed Date: 04/26/2025 07:20 ET Workstation ID: [id number] Transcribed By: Self Edit Transcribed Date: 04/26/2025 [...] Signed Date: 04/26/2025 07:20 ET Workstation ID: [id number] Transcribed By: Self Edit Transcribed Date: 04/26/2025 [...] 1 urovision slide 05/11/2025 2:39 PM EDT [facility] Disclaimer Unless otherwise specified, all tissue is 10% NB formalin fixed and paraffin embedded. Technical cytopathology services provided by [facility], at [address] [place] [address] (IA # [id number]/Dudley Hutchins MD, Cistern Room Operator.) 05/11/2025 2:39 PM EDT [facility] Urine Urinary bladder structure / Unknown 04/25/2025 3:54 PM EDT 04/26/2025 9:24 AM EDT Urine specimen (specimen) Right kidney structure / Unknown 04/25/2025 4:00 PM EDT 04/26/2025 9:24 AM EDT Urine specimen (specimen) Left kidney structure / Unknown 04/25/2025 4:09 PM EDT 04/26/2025 9:24 AM EDT Francesca Dillard MD LAB CYTOLOGY ORDERABLES Edited Result - Final EXTERNAL LAB (NON-INTERFACED) [facility] [address] [place] [address], [place] [phone] * TH AN LMA(NO CHARGE) (04/25/2025 3:35 [...] ORDERABLES Fin al Result Performing Organization Address City/[facility]/ZIP Co de Phone Number [facility] [address] [place] [address], [place] [phone] from Last 3 Months Insurance MEDICARE [facility] Care Teams Regional Coordinator Relationship Specialty Start Date End Date Ashli Eddy MD [address] [place] [phone] PCP - General Internal Medicine 04/25/25
== END 2025-07-06 11:52 | disposition home or self-care (01) ==
LOC: HO.HAP 11:51
PROVIDERS: Visit Provider Internal Medicine
DX: Z13.89 Encounter for screening for other disorder (principal)

== ENCOUNTER 2025-07-08 12:53 | Outpatient (REF) | payer SELFPAY ==
--- OUTSIDE RECORDS SUMMARY | 2025-07-08 15:01 | XMS_ITS | Clinical Summary ---
Author Organization [facility] Address [address] [place] [address] Phone Care Team Providers Care Movers Name Role Phone Ashli Eddy MD Primary Care Provider + [phone] Allergies No known active allergies Medications nebivoloL [...] Description 04/25/2025 3:21 PM EDT Anesthesia Event [facility] Main OR [address] [place] [address] Kirby Chavarria MD 04/25/2025 2:20 PM EDT - 04/25/2025 4:20 PM EDT Surgery [facility] Main OR [address] [place] [address] Francesca Dillard MD TRANSRECTAL ULTRASOUND GUIDED NEEDLE PROSTATED BIOPSY [19828 (CPT )] 04/25/2025 12:15 PM EDT - 04/25/2025 11:59 PM EDT Hospital Encounter [facility] Ultrasound [address] [place] [address] Elevated PSA Discharge Disposition: Home or Self Care 04/25/2025 12:09 PM EDT - 04/25/2025 7:18 PM EDT Hospital Encounter [facility] Main OR [address] [place] [address] Francesca Dillard MD Elevated prostate specific antigen (PSA); Asymptomatic microscopic hematuria; Other abnormal findings on cytological and histological examination of urine Discharge Disposition: Home or Self Care 04/25/2025 7:45 AM EDT - 04/25/2025 11:59 PM EDT Hospital Encounter [facility] Xray [address] [place] [address] Pain Discharge Disposition: Home or Self Care [...] histological examination of urine 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, 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 Needs TIME CHGD TO 12:00 (MOVED CASE DOWN)PER CRISTA VIA FAX BKG; case msg sent to u/s w/new start time AC 03/28 Sent case msg for u/s tech request [place] BIOPSY PROSTATE NEEDLE/PUNCH SINGLE/MULTIPLE ANY APPROACH 04/25/2025 3:22 PM EDT Elevated prostate specific antigen (PSA) Asymptomatic microscopic hematuria Other abnormal findings on cytological and histological examination of urine 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, 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 F. Prostate, Right [address] Lateral: - Benign prostatic tissue. G. Prostate, Right [address] Medial: - Benign prostatic tissue. H. Prostate, Left Base Lateral: - Benign prostatic tissue. I. Prostate, Left Base Medial: - Benign prostatic tissue. J. Prostate, Left Mid Lateral: - Benign prostatic tissue. K. Prostate, Left Mid Medial: - Benign prostatic tissue. L. Prostate, Left [address] Lateral: - Benign prostatic tissue. M. Prostate, Left [address] Medial: - Benign prostatic tissue. 04/27/2025 1:02 PM EDT [facility] Gross Description A. Urinary [...] cassette, one piece, x4. F. Prostate, Right [address] Lateral: Labeled prostate biopsy, right apex lateral . Received in formalin, between sheets of Telfa, is a 1.4 x 0.1 cm soft, cade-white tissue core, which is submitted in toto, between sponges, in one cassette, one piece, x4. G. Prostate, Right [address] Medial: Labeled prostate biopsy, right apex medial [...] x4. Left mid medial L. Prostate, Left [address] Lateral: Labeled prostate biopsy, left apex lateral . Received in formalin, between sheets of Telfa, is a 1.4 x 0.1 cm soft, cade-white tissue core, which is submitted in toto, between sponges, in one cassette, one piece, x4. M. Prostate, Left [address] Medial: Labeled prostate biopsy, left apex medial . Received in formalin, between sheets of Telfa, is a 0.6 x 0.1 cm soft, cade-white tissue core, which is submitted in toto, between sponges, in one cassette, one piece, x4. TS 04/27/2025 1:02 PM EDT [facility] Disclaimer Unless otherwise specified, all tissue is 10% NB formalin fixed and paraffin embedded. 04/27/2025 1:02 PM EDT [facility] Tissue Urinary bladder structure / Unknown [...] Dillard MD LAB PATHOLOGY ORDERABLES Final Result [facility] [address] [place] [address], [place] [phone] * XR Urogram Retrograde (04/25/2025 4:15 PM EDT) Anatomical Region Laterality Modality Body Radio Fluoroscop y 04/26/2025 7:18 AM EDT Impressions 04/26/2025 7:20 AM EDT Imaging assistance provided during a urologic procedure -------- FINAL REPORT -------- Dictated By: Wild Winkler Dictated Date: 04/26/2025 07:18 ET Assigned Physician: Wild Winkler Reviewed and Electronically Signed By: Wild Winkler Signed Date: 04/26/2025 07:20 ET Workstation ID: [id number] Transcribed By: Self Edit Transcribed Date: 04/26/2025 [...] Signed Date: 04/26/2025 07:20 ET Workstation ID: [id number] Transcribed By: Self Edit Transcribed Date: 04/26/2025 [...] LAB (NON-INTERFAC ED) Addendum electronically signed by hCarlie Hutchins MD on 05/11/2025 at 2:39 PM [...] 1 urovision slide 05/11/2025 2:39 PM EDT [facility] Disclaimer Unless otherwise specified, all tissue is 10% NB formalin fixed and paraffin embedded. Technical cytopathology services provided by [facility], at [address] [place] [address] (IA # [id number]/Dudley Hutchins MD, Painter And Body Mechanic Apprentice.) 05/11/2025 2:39 PM EDT [facility] Urine Urinary bladder structure / Unknown 04/25/2025 3:54 PM EDT 04/26/2025 9:24 AM EDT Urine specimen (specimen) Right kidney structure / Unknown 04/25/2025 4:00 PM EDT 04/26/2025 9:24 AM EDT Urine specimen (specimen) Left kidney structure / Unknown 04/25/2025 4:09 PM EDT 04/26/2025 9:24 AM EDT Francesca Dillard MD LAB CYTOLOGY ORDERABLES Edited Result - Final EXTERNAL LAB (NON-INTERFACED) [facility] [address] [place] [address], [place] [phone] * TH AN LMA(NO CHARGE) (04/25/2025 3:35 [...] LAB COAGULATION METHOD 04/25/2025 12:53 PM EDT [facility] INR 1.0 LAB COAGULATION METHOD 04/25/2025 12:53 PM EDT [facility] Blood Venous blood specimen / Unknown Venipuncture / Unknown 04/25/2025 12:35 PM EDT 04/25/2025 12:44 PM EDT Francesca Dillard MD LAB BLOOD ORDERABLES Fin al Result Performing Organization Address City/[facility]/ZIP Co de Phone Number [facility] [address] [place] [address], [place] [phone] from Last [address] [facility] Care Teams Movers Relationship Specialty Start Date End Date Ashli Eddy MD [address] [place] [phone] PCP - General Internal Medicine 04/25/25
--- OUTSIDE RECORDS SUMMARY | 2025-07-08 15:01 | XMS_ITS | Clinical Summary ---
Author Organization [facility] Address [address] [facility] [address] [place] [address] Phone Care Team Providers Care Assistant Analyst Name Role Phone Ashli Eddy MD Primary [...] Orders Only [facility] [address] [place] [phone] Pro Andrew MD [address] [phone] Stage 3 chronic kidney disease, not otherwise specified (HCC) 01/11/2026 1:00 PM EDT Office Visit [facility] [address] [place] [phone] Pro Andrwe MD [address] [address] Health Maintenance Due Date Last Done Comments Colorectal Cancer Screening: Annual FOBT 1998 Colorectal Cancer Screening: Colonoscopy 1998 Colorectal Cancer Screening: Sigmoidoscopy 1998 Influenza Vaccine (#1) 2025 9, 06/27/2018 Pneumococcal Vaccine: 50+ Years Completed 08/08/2016, 01/25/2015 Hepatitis B Vaccine Aged Out No longe r eligible based on patient's age to complete this topic Insurance Medicare [facility] Medicare Unicare Care Teams Assistant Analyst Relationship Specialty Start Date End Date Ashli Eddy MD [address] [place] [phone] PCP - General Internal Medicine 01/10/23
--- OUTSIDE RECORDS SUMMARY | 2025-07-08 15:02 | XMS_ITS | Clinical Summary ---
Author Organization [facility] Address [address] [place] [address] Care Team Providers Care Powerhouse Oiler Name Role Phone Galileo Willis MD Primary Care Provider [phone] Allergies No known active allergies Medications Medication [...] age to complete this topic Care Teams Powerhouse Oiler Relationship Specialty Start Date End Date Galileo Willis MD [address] [place] [address] PCP - General Family Medicine 12/15/17
== END 2025-07-08 12:54 | disposition home or self-care (01) ==
LOC: HO.HAP 12:53
PROVIDERS: Visit Provider Internal Medicine
DX: Z46.1 Encounter for fitting and adjustment of hearing aid (principal); H90.3 Sensorineural hearing loss, bilateral
CPT/HCPCS: 92593

== ENCOUNTER 2025-07-08 13:03 | Outpatient (REF) | payer SELFPAY ==
--- NOTE | 2025-07-08 15:11 | MHC.AU.HA3 ---
Hearing Instrument Follow-Up- Binaural Date of Visit: 07/08/25 Right Ear: Make, Model, Color, Serial Number: Oticon Intent 1 miniRITE-R SN: [id number] Color: Chroma Beige Coal Drier Operator Repair Warranty: 08/14/2027 Coal Drier Operator Loss and Damage Warranty: 08/14/2027 [facility] Service Plan: n/a Battery Size: Rechargeable Conveyor Loader/Slim Tube: 2/85 Earmold/Dome/CShell/SlimTip:8mm double artis dome with retention tail Type of Wax Guard: miniFit Dispensed By: Office of Dr. Mckeon Date of Fitting: unknown Left Ear: Make, Model, Color, Serial Number: Oticon Intent 1 miniRITE-R SN: [id number] Color: Chroma Beige Coal Drier Operator Repair Warranty: 08/14/2027 Coal Drier Operator Loss and Damage Warranty: 08/14/2027 [facility] Service Plan: n/a Battery Size: Rechargeable Conveyor Loader/Slim Tube: 2/85 Earmold/Dome/CShell/SlimTip: 8mm double artis dome with retention tail Type of Wax Guard: miniFit Dispensed By: Office of Dr. Mckeon Date of Fitting: unknown Follow-Up Summary: Dropped off pair of Oticon Opn S 3 mini RITE T hearing aids (R: [id number], L: [id number]) for maintenance. Cleaned aids. Replaced domes, wax guards, and tails. Listening check good both aids. Chroma beige, 8mm double artis, minifit prowax, yes tails. Recommendations: Recommendations: Hearing instrument follow-up or maintenance as needed. Diagnosis Code(s): Primary Diagnosis: H90.3 Signature: Provider: Brent Spivey, CCC-A
== END 2025-07-08 13:04 | disposition home or self-care (01) ==
LOC: HO.HAP 13:03
DX: Z13.89 Encounter for screening for other disorder (principal)

== ENCOUNTER 2025-07-15 14:48 | Outpatient (REF) | payer SELFPAY ==
--- OUTSIDE RECORDS SUMMARY | 2025-07-15 22:17 | XMS_ITS | Clinical Summary ---
Author Organization [facility] Address [address] [place] [address] Phone Care Team Providers Care Flavorings Compounder Name Role Phone Ashli Eddy MD Primary Care Provider + [phone] Allergies No known active allergies Medications nebivoloL [...] Description 04/25/2025 3:21 PM EDT Anesthesia Event [facility] [address] [place] [address] Kirby Chavarria MD 04/25/2025 2:20 PM EDT - 04/25/2025 4:20 PM EDT Surgery [facility] [address] [place] [address] Francesca Dillard MD TRANSRECTAL ULTRASOUND GUIDED NEEDLE PROSTATED BIOPSY [80604 (CPT )] 04/25/2025 12:15 PM EDT - 04/25/2025 11:59 PM EDT Hospital Encounter [facility] Ultrasound [address] [place] [address] Elevated PSA Discharge Disposition: Home or Self Care 04/25/2025 12:09 PM EDT - 04/25/2025 7:18 PM EDT Hospital Encounter [facility] [address] [place] [address] Francesca Dillard MD Elevated prostate specific antigen (PSA); Asymptomatic microscopic hematuria; Other abnormal findings on cytological and histological examination of urine Discharge Disposition: Home or Self Care 04/25/2025 7:45 AM EDT - 04/25/2025 11:59 PM EDT Hospital Encounter [facility] Xray [address] [place] [address] Pain Discharge Disposition: Home or Self Care [...] LMA(NO CHARGE) Routine 04/25/2025 3:35 PM EDT MO CYSTOURETHROSCOPY WITH BIOPSY(S) 04/25/2025 3:22 PM EDT Elevated prostate specific antigen (PSA) Asymptomatic microscopic hematuria Other abnormal findings on cytological and histological examination of urine 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, 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 CHGD TO 12:00 (MOVED CASE DOWN)PER CRISTA VIA FAX BKG; case msg sent to u/s w/new start time AC 03/28 Sent case msg for u/s tech request MO BIOPSY PROSTATE NEEDLE/PUNCH SINGLE/MULTIPLE ANY APPROACH 04/25/2025 3:22 PM EDT Elevated prostate specific antigen (PSA) Asymptomatic microscopic hematuria Other abnormal findings on cytological and histological examination of urine 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 F. Prostate, Right [place] Lateral: - Benign prostatic tissue. G. Prostate, Right [place] Medial: - Benign prostatic tissue. H. Prostate, Left Base Lateral: - Benign prostatic tissue. I. Prostate, Left Base Medial: - Benign prostatic tissue. J. Prostate, Left Mid Lateral: - Benign prostatic tissue. K. Prostate, Left Mid Medial: - Benign prostatic tissue. L. Prostate, Left [place] Lateral: - Benign prostatic tissue. M. Prostate, Left [place] Medial: - Benign prostatic tissue. 04/27/2025 1:02 PM EDT [facility] Gross Description A. Urinary [...] cassette, one piece, x4. F. Prostate, Right [place] Lateral: Labeled prostate biopsy, right apex lateral . Received in formalin, between sheets of Telfa, is a 1.4 x 0.1 cm soft, cade-white tissue core, which is submitted in toto, between sponges, in one cassette, one piece, x4. G. Prostate, Right [place] Medial: Labeled prostate biopsy, right apex medial [...] x4. Left mid medial L. Prostate, Left [place] Lateral: Labeled prostate biopsy, left apex lateral . Received in formalin, between sheets of Telfa, is a 1.4 x 0.1 cm soft, cade-white tissue core, which is submitted in toto, between sponges, in one cassette, one piece, x4. M. Prostate, Left [place] Medial: Labeled prostate biopsy, left apex medial . Received in formalin, between sheets of Telfa, is a 0.6 x 0.1 cm soft, cade-white tissue core, which is submitted in toto, between sponges, in one cassette, one piece, x4. TS 04/27/2025 1:02 PM EDT [facility] Disclaimer Unless otherwise specified, all tissue is 10% NB formalin fixed and paraffin embedded. 04/27/2025 1:02 PM EDT [facility] Tissue Urinary bladder [...] Dillard MD LAB PATHOLOGY ORDERABLES Final Result [facility] [address] [place] [address], [place] [phone] * XR Urogram Retrograde (04/25/2025 4:15 PM EDT) Anatomical Region Laterality Modality Body Radio Fluoroscop y 04/26/2025 7:18 AM EDT Impressions 04/26/2025 7:20 AM EDT Imaging assistance provided during a urologic procedure -------- FINAL REPORT -------- Dictated By: Wild Winkler Dictated Date: 04/26/2025 07:18 ET Assigned Physician: Wild Winkler Reviewed and Electronically Signed By: Wild Winkler Signed Date: 04/26/2025 07:20 ET Workstation ID: [id number] Transcribed By: Self Edit Transcribed Date: 04/26/2025 [...] Signed Date: 04/26/2025 07:20 ET Workstation ID: [id number] Transcribed By: Self Edit Transcribed Date: 04/26/2025 [...] 1 urovision slide 05/11/2025 2:39 PM EDT [facility] Disclaimer Unless otherwise specified, all tissue is 10% NB formalin fixed and paraffin embedded. Technical cytopathology services provided by [facility], at [address] [place] [address] (IA # [id number]/Dudley Hutchins MD, Teletypesetter.) 05/11/2025 2:39 PM EDT [facility] Urine Urinary bladder structure / Unknown 04/25/2025 3:54 PM EDT 04/26/2025 9:24 AM EDT Urine specimen (specimen) Right kidney structure / Unknown 04/25/2025 4:00 PM EDT 04/26/2025 9:24 AM EDT Urine specimen (specimen) Left kidney structure / Unknown 04/25/2025 4:09 PM EDT 04/26/2025 9:24 AM EDT Francesca Dillard MD LAB CYTOLOGY ORDERABLES Edited Result - Final EXTERNAL LAB (NON-INTERFACED) [facility] [address] [place] [address], [place] [phone] * TH AN LMA(NO CHARGE) (04/25/2025 3:35 [...] LAB COAGULATION METHOD 04/25/2025 12:53 PM EDT [facility] INR 1.0 LAB COAGULATION METHOD 04/25/2025 12:53 PM EDT [facility] Blood Venous blood specimen / Unknown Venipuncture / Unknown 04/25/2025 12:35 PM EDT 04/25/2025 12:44 PM EDT Francesca Dillard MD LAB BLOOD ORDERABLES Fin al Result Performing Organization Address City/[facility]/ZIP Co de Phone Number [facility] [address] [place] [address], [place] [phone] from Last 3 Months Insurance MEDIC[facility] Care Teams Flavorings Compounder Relationship Specialty Start Date End Date Ashli Eddy MD [address] [place] [phone] PCP - General Internal Medicine 04/25/25
--- OUTSIDE RECORDS SUMMARY | 2025-07-15 22:17 | XMS_ITS | Clinical Summary ---
Author Organization [facility] Address [address] [place] [address] Care Team Providers Care Hotel Registration Clerk Name Role Phone Galileo Willis MD Primary Care Provider [phone] Allergies No known active allergies Medications Medication [...] age to complete this topic Care Teams Hotel Registration Clerk Relationship Specialty Start Date End Date Galileo Willis MD [address] [place] [address] PCP - General Family Medicine 12/15/17
--- OUTSIDE RECORDS SUMMARY | 2025-07-15 22:17 | XMS_ITS | Clinical Summary ---
Author Organization [facility] Address [address] [facility] [address] [place] [address] Phone Care Team Providers Care Credit Report Checker Name Role Phone Ashli Eddy MD Primary [...] Orders Only [facility] [address] [place] [phone] Pro Andrew MD [address] [phone] Stage 3 chronic kidney disease, not otherwise specified (HCC) 01/11/2026 1:00 PM EDT Office Visit [facility] [address] [place] [phone] Pro Andrew MD [address] [phone] Health Maintenance Due Date Last Done Comments Colorectal Cancer Screening: Annual FOBT 1998 Colorectal Cancer Screening: Colonoscopy 1998 Colorectal Cancer Screening: Sigmoidoscopy 1998 Influenza Vaccine (#1) 2025 9, 06/27/2018 Pneumococcal Vaccine: 50+ Years Completed 08/08/2016, 01/25/2015 Hepatitis B Vaccine Aged Out No longe r eligible based on patient's age to complete this topic Insurance Medicare [facility] Medicare [employer] Care Teams Credit Report Checker Relationship Specialty Start Date End Date Ashli Eddy MD [address] [place] [id number] PCP - General Internal Medicine 01/10/23
== END 2025-07-15 14:49 | disposition home or self-care (01) ==
LOC: HO.HAP 14:48
PROVIDERS: Visit Provider Internal Medicine
DX: Z46.1 Encounter for fitting and adjustment of hearing aid (principal); H90.3 Sensorineural hearing loss, bilateral
CPT/HCPCS: 92593